=== PATIENT | female | born 1960 | race African-American/Black ===

== ENCOUNTER 2024-11-29 08:23 | Inpatient (IN) | payer OTHER, MEDICAID ==
[~2024-11-29] VITALS: Ht 167.6 cm; Wt 122.5 kg
--- NOTE | 2024-11-29 08:36 | ED.PDOC ---
History of Present Illness HPI Comments 64 year old female presents to the ED via EMS with a chief complaint of dizziness onset today (11/29/24) around 06:00. Patient woke up around 06:00 experiencing dizziness, worse when she sits up or walks. Patient was concerned for possible CVA, called 911. PMHx HTN, HLD, arthritis, DM. Denies any head injury, headache, blurry vision, chest pain, shortness of breath, fall, injury, trauma, cough, congestion, fever, chills. No other symptoms or modifying factors present at this time. Time Seen by MD: 08:28 Reviewed Notes: Nurses Notes, Medications, Allergies Allergies: Coded Allergies: NO KNOWN ALLERGIES (Unverified , 11/29/24) Information Source: Patient, Emergency Med Personnel Mode of Arrival: EMS Severity: Moderate Timing: Hours Duration: Since onset Prehospital treatment: None Past Medical History PAST MEDICAL HISTORY: Arthritis, DM, High Lipids, HTN Surgical History: Appendectomy, Tubal Ligation PHYSICIAN'S ASSISTANT History: No Pertinent PHYSICIAN'S ASSISTANT History Family History Family History: Family hx of heart justin Social History Smoker: Non-Smoker Alcohol: Denies ETOH Use Drugs: Denies Drug Use Lives In: Home Constitutional: denies: chills, diaphoresis, fatigue, fever, malaise, sweats, weakness, others EENTM: denies: blurred vision, double vision, ear bleeding, ear discharge, ear drainage, ear pain, ear ringing, eye pain, eye redness, hearing loss, mouth pain, mouth swelling, nasal discharge, nose bleeding, nose congestion, nose pain, photophobia, tearing, throat pain, throat swelling, voice changes, others Respiratory: denies: cough, hemoptysis, orthopnea, SOB at rest, shortness of breath, SOB with excertion, stridor, wheezing, others Cardiovascular: denies: chest pain, dizzy spells, diaphoresis, Dyspnea on exertion, edema, irregular heart beat, left arm pain, lightheadedness, palpitations, PND, syncope, others Gastrointestinal: denies: abdomen distended, abdominal pain, blood streaked bowels, constipated, diarrhea, dysphagia, difficulty swallowing, hematemesis, melena, nausea, poor appetite, poor fluid intake, rectal bleeding, rectal pain, vomiting, others Genitourinary: denies: abnormal vagina bleeding, burning, dyspareunia, dysuria, flank pain, frequency, hematuria, incontinence, pain, , vagina discharge, urgency, others Neurological: reports: dizziness; denies: fainting, headache, left sided numbness, left sided weakness, numbness, paresthesia, pre-existing deficit, right sided numbness, right sided weakness, seizure, speech problems, tingling, tremors, weakness, others Musculoskeletal: denies: back pain, gout, joint pain, joint swelling, muscle pain, muscle stiffness, neck pain, others Integumetry: denies: bruises, change in color, change in hair/nails, dryness, laceration, lesions, lumps, rash, wounds, others Allergic/Immunocompromised: denies: Difficulty Healing, Frequent Infections, Hives, Itching, others Hematologic/Lymphatic: denies: anemia, blood clots, easy bleeding, easy bruising, swollen glands, others Endocrine: denies: excessive hunger, excessive sweating, excessive thirst, excessive urination, flushing, intolerance to cold, intolerance to heat, unexplained weight gain, unexplained weight loss, others Psychiatric: denies: anxiety, bipolar disorder, depression, hopeless, panic disorder, schizophrenia, sleepless, suicidal, others All Other Systems: Reviewed and Negative Physical Exam General Appearance: Moderate Distress, Obese HEENT: Normal ENT Inspection, Pharynx Normal, TMs Normal Neck: Full Range of Motion, Non-Tender, Normal, Normal Inspection Respiratory: Chest Non-Tender, Lungs Clear, No Accessory Muscle Use, No Respiratory Distress, Normal Breath Sounds Cardiovascular: No Edema, No JVD, No Murmur, No Gallop, Normal Peripheral Pulses, Regular Rate/Rhythm Breast Exam: Deferred Gastrointestinal: No Organomegaly, Non Tender, No Pulsatile Mass, Normal Bowel Sounds, Soft Genitalia: Deferred Pelvic: Deferred Rectal: Deferred Extremities: No calf tenderness, Normal capillary refill, Normal inspection, Normal range of motion, Non-tender, No pedal edema Musculoskeletal : Apperance: Normal Neurologic: Alert, cert pharmacy tech II-XII nml as Tested, Motor Weakness, Normal Affect, Normal Mood, No Sensory Deficits Cerebellar Function: Unable to Test Reflexes: Normal Skin: Dry, Normal Color, Warm Lymphatic: No Adenopathy Was a procedure done? Was a procedure done?: No EKG EKG : Pulse Rate (adult): 69 Cardiac Rhythm: NSR Differential Dx Considerations may include: Autonomic dysfunction, near-syncope, dizziness X-Ray, Labs, Meds, VS Vital Signs Date Time Temp Pulse Resp B/P (MAP) Pulse Ox O2 Delivery O2 Flow Rate FiO2 11/29/24 10:22 76 18 100 Room Air 11/29/24 10:22 98.8 74 18 120/58 (78) 100 98.8 11/29/24 08:36 69 11/29/24 08:35 98.0 92 18 160/78 (105) 99 98.0 11/29/24 08:25 69 Lab Test 11/29/24 08:45 Range/Units White Blood Count 3.7 L 4.4-10.8 10^3/uL Red Blood Count 4.51 4.0-5.20 10^6/uL Hemoglobin 14.0 12.2-16.2 g/dL Hematocrit 40.1 36.0-46.0 % Mean Corpuscular Volume 88.8 80.0-100.0 fL Mean Corpuscular Hemoglobin 31.0 28.0-32.0 pg Mean Corpuscular Hemoglobin Concent 34.9 32.0-36.0 g/dL Red Cell Distribution Width 14.1 11.8-14.3 % Platelet Count 246 140-450 10^3/uL Mean Platelet Volume 8.7 6.9-10.8 fL Neutrophils (%) (Auto) 45.4 37.0-80.0 % Lymphocytes (%) (Auto) 45.1 10.0-50.0 % Monocytes (%) (Auto) 7.6 0.0-12.0 % Eosinophils (%) (Auto) 1.3 0.0-7.0 % Basophils (%) (Auto) 0.6 0.0-2.0 % Neutrophils # (Auto) 1.7 1.6-8.6 10 ^3/uL Lymphocytes # (Auto) 1.7 0.4-5.4 10 ^3/uL Monocytes # (Auto) 0.3 0-1.3 10 ^3/uL Eosinophils # (Auto) 0 0-0.8 10 ^3/uL Basophils # (Auto) 0 0-0.2 10 ^3/uL Nucleated Red Blood Cells 0.1 % Sodium Level 140 136-145 mmol/L Potassium Level 4.0 3.5-5.1 mmol/L Chloride Level 105 98-107 mmol/L Carbon Dioxide Level 23 20-31 mmol/L Anion Gap 12 5-15 Blood Urea Nitrogen 16 9-23 mg/dL Creatinine 1.08 H 0.550-1.02 mg/dL Glomerular Filtration Rate Calc 58 >90 mL/min BUN/Creatinine Ratio 14.8 10.0-20.0 Serum Glucose 148 H 74-106 mg/dL Calcium Level 10.1 8.7-10.4 mg/dL Troponin I High Sensitivity 3 L </=34 ng/L Current Medications Medications (Trade) Dose Ordered Sig/Kyra Route Start Time Stop Time Status Last Admin Sodium Chloride 500 ml @ 500 mls/hr Q1H ONCE IV 11/29/24 08:45 11/29/24 09:44 DC 11/29/24 08:45 PROCEDURE(s): HWOCT - HEAD WITHOUT CONTRAST REASON: dizziness ORDER NUMBER(s): [id number], ACCESSION NUMBER(s): [id number] IMPRESSION: 1. No acute intracranial process. HS:Y Hep-Lock was established. The patient was given a normal saline bolus at 500 cc The patient's CBC is within normal limits The chemistry panel shows a creatinine of 1.08 At this time, the patient was being admitted with a diagnosis of autonomic dysfunction The patient understands and agrees with the management. Images Reviewed?: Images reviewed and evaluated by me Time of 1ST Reevaluation: 08:58 Reevaluation 1ST: Unchanged Patient Education/Counseling: Diagnosis, Treatment, Prognosis Family Education/Counseling: No Family Present Additional Information The following tests were ordered, and results were reviewed by me: EKG, TROP, CBC, UA, BMP, CT HEAD WO CON Additional Information was gathered from interviewing the following independent historians: EMS I reviewed and agreed with the following test results read by other providers: CT HEAD WO CON I discussed treatment and results with medical personnel and: patient Comprehensive systems review obtained and negative except for what is stated in the HPI. Departure 1 Departure Time of Disposition: 10:51 Impression: Primary Impression: Autonomic dysfunction Disposition: 09 ADMITTED INPATIENT Admit to: Tele Condition: Fair Critical Care Note Critical Care Time?: Yes (45 min-critical care time only) Stability Stability form required: Yes Unstable for transfer: Telemetry monitoring (Telemetry monitoring required), ED Physician Assesment (Clinical assesment) Heart Score Heart Score: Heart Score Response (Comments) Value History N/A 0 EKG N/A 0 Age N/A 0 Risk Factors N/A 0 Troponin N/A 0 Total 0 I personally scribed for ABELARDO MATHIS MD ([email or web address]) on 11/29/24 at 08:36. Electronically submitted by Elizabeth Griggs ([email or web address]). I personally scribed for ABELARDO MATHIS MD ([email or web address]) on 11/29/24 at 08:36. Electronically submitted by Elizabeth Griggs ([email or web address]). I personally scribed for ABELARDO MATHIS MD ([email or web address]) on 11/29/24 at 09:00. Electronically submitted by Elizabeth Griggs ([email or web address]). I personally scribed for ABELARDO MATHIS MD ([email or web address]) on 11/29/24 at 10:11. Electronically submitted by Elizabeth Griggs ([email or web address]). ABELARDO MATHIS MD Nov 29, 2024 08:36
[2024-11-29] MEDS: SODIUM CHLORIDE 0.9% 500 ML IV ONE (08:45)
[2024-11-29 09:08] LABS: Basophils # (auto) 0 10 ^3/uL (0-0.2); Basophils % (auto) 0.6 % (0.0-2.0); Eosinophils # (auto) 0 10 ^3/uL (0-0.8); Eosinophils % (auto) 1.3 % (0.0-7.0); Hematocrit 40.1 % (36.0-46.0); Lymphocytes # (auto) 1.7 10 ^3/uL (0.4-5.4); Lymphocytes % (auto) 45.1 % (10.0-50.0); Mean Corpuscular Hgb Conc. 34.9 g/dL (32.0-36.0); Mean Corpuscular Volume 88.8 fL (80.0-100.0); Monocytes # (auto) 0.3 10 ^3/uL (0-1.3); Monocytes % (auto) 7.6 % (0.0-12.0); Neutrophils # (auto) 1.7 10 ^3/uL (1.6-8.6); Neutrophils % (auto) 45.4 % (37.0-80.0); Nucleated Red Blood Cells % 0.1 %; Platelet Count (auto) 246 10^3/uL (140-450); Red Blood Cells 4.51 10^6/uL (4.0-5.20); Red Cell Distribution Width 14.1 % (11.8-14.3); White Blood Cell 3.7 10^3/uL (4.4-10.8)
[2024-11-29 09:16] LABS: Chloride 105 mmol/L (98-107); Sodium 140 mmol/L (136-145)
[2024-11-29 09:17] LABS: Anion Gap 12 (5-15); Calcium 10.1 mg/dL (8.7-10.4); Carbon Dioxide 23 mmol/L (20-31)
[2024-11-29 09:22] LABS: BUN/Creatinine Ratio 14.8 (10.0-20.0); Blood Urea Nitrogen 16 mg/dL (9-23)
[2024-11-29 09:23] LABS: Glucose 148 mg/dL (74-106)
--- NOTE | 2024-11-29 10:01 | DVH ---
EXAM: CT HEAD WITHOUT CONTRAST HISTORY: dizziness COMPARISON: None TECHNIQUE: Axial images of the head were obtained and reformatted in coronal and sagittal planes. All CT scans at this medical facility are performed using dose modulation techniques as appropriate t o a performed exam including the following: Automated exposure control was utilized; adjustment of th e MA and/or KV according to patient size; and use of iterative reconstruction technique. CT Dose: CTDI volume is 52 mGy. Dose-length product is 833 mGy*cm FINDINGS: There is no evidence of acute intracranial hemorrhage, mass, mass effect midline shift. There is no h ydrocephalus or extra-axial fluid collection. Watson-white matter differentiation is maintained. The visualized paranasal sinuses and mastoid air cells are clear. The calvarium is intact. IMPRESSION: 1. No acute intracranial process. HS:Y
[2024-11-29] MEDS ORDERED: LISI-287 PO (13:08)
[2024-11-29] MEDS ORDERED: AMLO1TAB23 PO (13:08)
--- NOTE | 2024-11-29 13:12 | DVHHP2 ---
Admitting Diagnosis: Dizziness History of Present Illness 64 y/o female patient with h/o HTN, HLD, DM presents with c/o dizziness since waking up this morning. She denies head injury, headache, vision changes. While in the emergency department the patient was evaluated by the provider, As per provider: Labs, vital signs, and imagining monitored. Patient will be admitted for further evaluation and treatment. I discussed admission with the patient/family and is in agreement to treatment plan. Allergies: Coded Allergies: NO KNOWN ALLERGIES (Unverified , 11/29/24) Home Meds Reported Medications Famotidine (PEPCID TABLET) 20 Mg Tb, 2 TAB PO BID, #60 TAB 5 Refills 11/29/24 Atorvastatin Calcium (ATORVASTATIN CALCIUM) 20 Mg Tab, 30 MG PO DAILY, TAB 11/29/24 Duloxetine Hcl (Cymbalta) 60 Mg Cap, 500 MG PO, CAP 11/29/24 Aspirin (Aspir-Low) 81 Mg Tab, 81 MG PO DAILY for 30 Days, MG 11/29/24 Insulin Lispro (Insulin Lispro Kwikpen) 100 Unit/Ml Inj, SC 11/29/24 Moxifloxacin Hydrochloride (Moxifloxacin HCl) 0.5 % Anette, EACHEYE 11/29/24 Cyclobenzaprine HCl (Cyclobenzaprine Hydrochlo) 5 Mg Tab, 1 TAB PO BID 11/29/24 Lidocaine (Lidocaine) 5 % Pad, TOP 11/29/24 Pioglitazone Hydrochloride (PIOGLITAZONE HCL) 15 Mg Tab, 1 TAB PO DAILY 11/29/24 Metformin Hydrochloride (Metformin Hcl) 1,000 Mg Tab, 1 TAB PO BID 11/29/24 Amlodipine Besylate (Amlodipine Besylate) 10 Mg Tab, 1 TAB PO DAILY 11/29/24 Lisinopril & Hydrochlorothiazi (Lisinopril/Hydrochlorothi) 1 Tab Tab, 1 TAB PO DAILY 11/29/24 Current Medications Current Medications Medications (Trade) Dose Ordered Sig/Kyra Route PRN Reason Start Time Stop Time Status Last Admin Sodium Chloride 1,000 ml @ 120 mls/hr Q8H20M IV 11/29/24 13:15 11/29/24 13:15 Acetaminophen/ Hydrocodone Bitart ([place] 5/325MG Tab) 1 tab Q4HP PRN PO MODERATE PAIN (4-6 PAIN SCALE) 11/29/24 13:15 Ondansetron HCl (Zofran) 4 mg Q4HP PRN IV NAUSEA / VOMITING 11/29/24 13:15 Docusate Sodium (Colace Capsule) 100 mg BIDPRN PRN PO FOR CONSTIPATION 11/29/24 13:15 Acetaminophen (Tylenol Tablet) 650 mg Q6HP PRN PO PAIN SCALE 1-3 OR TEMP>100.4 11/29/24 13:15 Morphine Sulfate 2 mg Q4HPRN PRN IV SEVERE PAIN (7-10 PAIN SCALE) 11/29/24 13:15 Enoxaparin Sodium (Lovenox) 40 mg DAILY SC 11/30/24 10:00 Pantoprazole Sodium (Protonix) 40 mg DAILY IV 11/30/24 10:00 Nitroglycerin (Ntrostat Sublingual) 0.4 mg Q5MINP PRN SL FOR CHEST PAIN 11/29/24 13:15 Morphine Sulfate 2 mg Q30M PRN IV FOR CHEST PAIN 11/29/24 13:15 Diagnostic Test (Pha) (Accu-Chek Comfort Curve T) 1 strip ACHS 11/29/24 17:00 11/29/24 17:29 Insulin Human Regular (InsuLIN R) HS SC 11/29/24 22:00 Insulin Human Regular (InsuLIN R) AC SC 11/29/24 17:00 11/29/24 17:29 Dextrose 50 ml UD PRN IV Blood Sugar LESS THAN 60 11/29/24 13:15 Review of Systems Constitutional: denies chills, denies fever, denies malaise Eyes: denies eye pain, denies vision change ENT: denies ear pain, denies headache, denies nasal congestion, denies painful swallowing, denies voice change Cardiovascular: denies chest pain, denies edema, denies orthopnea, denies palpitations, denies paroxysmal nocturnal dyspnea Respiratory: denies cough, denies shortness of breath Gastrointestinal: denies constipation, denies diarrhea, denies nausea, denies vomiting Genitourinary: denies dysuria, denies frequent urination, denies urethral discharge Musculoskeletal: denies back pain, denies joint pain, denies muscle pain Skin: denies bruising, denies itching, denies rash Neurological: denies focal weakness, denies headache, denies sensory changes Psychiatric: denies anxiety, denies depression Endocrine: denies polydipsia, denies polyuria Hematologic/Lymphatic: denies easy bleeding, denies easy bruising, denies enlarged lymph nodes Allergic/Immunologic: denies allergy, denies hives Vital Signs Vital Signs Date Time Temp Pulse Resp B/P (MAP) Pulse Ox O2 Delivery O2 Flow Rate FiO2 11/29/24 18:07 97.2 67 20 132/82 (99) 100 97.2 11/29/24 18:07 Room Air* 0 21 Physical Exam General Appearance: alert, no distress HEENT: EOMI, PERRLA, normal external inspect of ears, no icterus, no nasal drainage Neck: no carotid bruit, no jugular venous distention (JVD), no lymphadenopathy Chest: normal thorax Respiratory: clear to auscultation, normal air movement Cardiovascular: regular rate and rhythm, no diastolic murmur, no jugular venous distention (JVD), no rub, no systolic murmur Abdominal: soft, no hepatomegaly, no mass, no splenomegaly, no tenderness Genitourinary: grossly normal external Musculoskeletal: no joint tenderness, no swelling Extremities: normal pulses, no calf tenderness, no clubbing, no cyanosis, no edema Skin: no bruising, no jaundice, no rash Neurological: alert, No focal deficit Results Labs Test 11/29/24 17:28 11/29/24 08:45 Range/Units POC Glucose 154 H 70-106 mg/dl White Blood Count 3.7 L 4.4-10.8 10^3/uL Red Blood Count 4.51 4.0-5.20 10^6/uL Hemoglobin 14.0 12.2-16.2 g/dL Hematocrit 40.1 36.0-46.0 % Mean Corpuscular Volume 88.8 80.0-100.0 fL Mean Corpuscular Hemoglobin 31.0 28.0-32.0 pg Mean Corpuscular Hemoglobin Concent 34.9 32.0-36.0 g/dL Red Cell Distribution Width 14.1 11.8-14.3 % Platelet Count 246 140-450 10^3/uL Mean Platelet Volume 8.7 6.9-10.8 fL Neutrophils (%) (Auto) 45.4 37.0-80.0 % Lymphocytes (%) (Auto) 45.1 10.0-50.0 % Monocytes (%) (Auto) 7.6 0.0-12.0 % Eosinophils (%) (Auto) 1.3 0.0-7.0 % Basophils (%) (Auto) 0.6 0.0-2.0 % Neutrophils # (Auto) 1.7 1.6-8.6 10 ^3/uL Lymphocytes # (Auto) 1.7 0.4-5.4 10 ^3/uL Monocytes # (Auto) 0.3 0-1.3 10 ^3/uL Eosinophils # (Auto) 0 0-0.8 10 ^3/uL Basophils # (Auto) 0 0-0.2 10 ^3/uL Nucleated Red Blood Cells 0.1 % Sodium Level 140 136-145 mmol/L Potassium Level 4.0 3.5-5.1 mmol/L Chloride Level 105 98-107 mmol/L Carbon Dioxide Level 23 20-31 mmol/L Anion Gap 12 5-15 Blood Urea Nitrogen 16 9-23 mg/dL Creatinine 1.08 H 0.550-1.02 mg/dL Glomerular Filtration Rate Calc 58 >90 mL/min BUN/Creatinine Ratio 14.8 10.0-20.0 Serum Glucose 148 H 74-106 mg/dL Calcium Level 10.1 8.7-10.4 mg/dL Troponin I High Sensitivity 3 L </=34 ng/L Plan 1. Autonomic dysfunction Monitorm neurology consult, MRI brain, IV fluids 2. HLD Monitor, medications, lipid panel 3. Benign essential HTN Monitor, cardiology consult, antihypertensives 4. Morbid obesity Monitor, cardiac diet 5. DM II with hyperglycemia Monitor, insulin SS, obtain Hgb A1c Plan discussed with: Patient, Other JOHN SHINE NP Nov 29, 2024 13:12
[2024-11-29] MEDS ORDERED: NITROGLYCERIN 0.4 MG SL TAB SL PRN (13:15)
[2024-11-29] MEDS ORDERED: MORPHINE SULFATE INJ 2 MG/ml SYRG IV PRN ×2 (13:15)
[2024-11-29] MEDS ORDERED: ACETAMINOPHEN 325 MG TAB PO PRN (13:15)
[2024-11-29] MEDS: SODIUM CHLORIDE 0.9% 1,000 ML IV SCH (13:15)
[2024-11-29] MEDS ORDERED: ONDANSETRON HCL 4 MG/2 ML VIAL IV PRN (13:15)
[2024-11-29] MEDS ORDERED: DEXTROSE (50%) 50ML SYRG IV PRN (13:15)
[2024-11-29 13:37] VITALS: PULSE 76; RESP 16; O2SAT 97
[2024-11-29] MEDS: ACCU-CHEK COMFORT CURVE STRIP VI SCH (17:29)
[2024-11-29] MEDS: InsuLIN REG 1unit/0.01ml Soln (100units/ml) SC SCH ×2 (17:29→22:10)
[2024-11-29 18:07] VITALS: BP 132/82; PULSE 67; RESP 20; TEMP 97.2; O2SAT 100
[2024-11-29] MEDS ORDERED: LIDO1PAD55 TOP (18:29)
[2024-11-29] MEDS ORDERED: CYCL-614 PO (18:29)
[2024-11-29] MEDS ORDERED: MOXI0.5S3 EACHEYE (18:29)
[2024-11-29] MEDS ORDERED: METF-372 PO (18:29)
[2024-11-29] MEDS ORDERED: INSU100I54 SC (18:29)
[2024-11-29] MEDS ORDERED: ASPI-543 PO (18:29)
[2024-11-29] MEDS ORDERED: PIOG1TAB36 PO (18:29)
[2024-11-29] MEDS ORDERED: DULO60CA41 PO (18:30)
[2024-11-29] MEDS ORDERED: ATOR20TA50 PO (18:30)
[2024-11-29] MEDS ORDERED: FAMO20TA10 PO (18:31)
[2024-11-29 20:00] VITALS: PULSE 68; PULSE 83; RESP 16
[2024-11-29 20:58] VITALS: BP 149/72; PULSE 83; RESP 16; TEMP 97.7; O2SAT 99
--- NOTE | 2024-11-29 23:35 | DVHINCON2 ---
Date of service: Nov 29, 2024 Referring Physician Fanta Reason for Consultation Stroke workup History of Present Illness Ms. Lynch is a 64 years old right-handed female with a history of hypertension, diabetes, dyslipidemia, arthritis, obesity, she came to the hospital on 11/29/2024 with a chief complaint of dizziness. At this time, she was alert and fully oriented, she provided the following history In the morning on 11/29/2024, she woke with intense dizziness in that everything was moving around her, as a result, she was not able to walk, the dizziness personally for 3-4 hours, she felt better when she closed her eyes and kept her body still. Her problem resolved after he came to the hospital. There was no associated nausea, vomiting, vision changes, hearing change, ringing in the years, increased sweating, focal weakness numbness About two years ago, she had a similar dizziness/spinning sensation spells lasted for about 3-4 hours, the patient was seen in the local hospital but she does not remember the diagnosis and the treatment For about 10 years of time, she has tingling, numbness in bilateral feet, legs, hands and all the bilateral fingers, the problem is worse when she was physically in the active, especially resting in the bed in the evening, with the urge to move however movement does not help the symptoms, the symptoms cause insomnia. Cymbalta use the help however not anymore after her new doctor cut do wn the dosage. She was reports gabapentin one capsule 3 times a day helped the symptoms. She does not remember using Lyrica CBC, 11/29/2024: WBC: 3.7 BUN/CR, 11/29/2024: 16/1.08 CT head, 11/29/2024: No acute intracranial process Past Medical History Hypertension, diabetes, dyslipidemia, arthritis Past Surgical History Appendectomy, tubal ligation Family History: Cardiovascular disease G8 MOTHER G8 BROTHER Family History Heart disease Social History She was a tobacco smoker, no history of drug or alcohol abuse Allergies: Coded Allergies: NO KNOWN ALLERGIES (Unverified , 11/29/24) Home Meds Reported Medications Famotidine (PEPCID TABLET) 20 Mg Tb, 2 TAB PO BID, #60 TAB 5 Refills 11/29/24 Atorvastatin Calcium (ATORVASTATIN CALCIUM) 20 Mg Tab, 30 MG PO DAILY, TAB 11/29/24 Duloxetine Hcl (Cymbalta) 60 Mg Cap, 500 MG PO, CAP 11/29/24 Aspirin (Aspir-Low) 81 Mg Tab, 81 MG PO DAILY for 30 Days, MG 11/29/24 Insulin Lispro (Insulin Lispro Kwikpen) 100 Unit/Ml Inj, SC 11/29/24 Moxifloxacin Hydrochloride (Moxifloxacin HCl) 0.5 % Anette, EACHEYE 11/29/24 Cyclobenzaprine HCl (Cyclobenzaprine Hydrochlo) 5 Mg Tab, 1 TAB PO BID 11/29/24 Lidocaine (Lidocaine) 5 % Pad, TOP 11/29/24 Pioglitazone Hydrochloride (PIOGLITAZONE HCL) 15 Mg Tab, 1 TAB PO DAILY 11/29/24 Metformin Hydrochloride (Metformin Hcl) 1,000 Mg Tab, 1 TAB PO BID 11/29/24 Amlodipine Besylate (Amlodipine Besylate) 10 Mg Tab, 1 TAB PO DAILY 11/29/24 Lisinopril & Hydrochlorothiazi (Lisinopril/Hydrochlorothi) 1 Tab Tab, 1 TAB PO DAILY 11/29/24 Current Medications Current Medications Medications (Trade) Dose Ordered Sig/Kyra Route PRN Reason Start Time Stop Time Status Last Admin Sodium Chloride 1,000 ml @ 120 mls/hr Q8H20M IV 11/29/24 13:15 11/29/24 13:15 Acetaminophen/ Hydrocodone Bitart ([place] 5/325MG Tab) 1 tab Q4HP PRN PO MODERATE PAIN (4-6 PAIN SCALE) 11/29/24 13:15 Ondansetron HCl (Zofran) 4 mg Q4HP PRN IV NAUSEA / VOMITING 11/29/24 13:15 Docusate Sodium (Colace Capsule) 100 mg BIDPRN PRN PO FOR CONSTIPATION 11/29/24 13:15 Acetaminophen (Tylenol Tablet) 650 mg Q6HP PRN PO PAIN SCALE 1-3 OR TEMP>100.4 11/29/24 13:15 Morphine Sulfate 2 mg Q4HPRN PRN IV SEVERE PAIN (7-10 PAIN SCALE) 11/29/24 13:15 Enoxaparin Sodium (Lovenox) 40 mg DAILY SC 11/30/24 10:00 Pantoprazole Sodium (Protonix) 40 mg DAILY IV 11/30/24 10:00 Nitroglycerin (Ntrostat Sublingual) 0.4 mg Q5MINP PRN SL FOR CHEST PAIN 11/29/24 13:15 Morphine Sulfate 2 mg Q30M PRN IV FOR CHEST PAIN 11/29/24 13:15 Diagnostic Test (Pha) (Accu-Chek Comfort Curve T) 1 strip ACHS 11/29/24 17:00 11/29/24 21:55 Insulin Human Regular (InsuLIN R) HS SC 11/29/24 22:00 11/29/24 22:10 Insulin Human Regular (InsuLIN R) AC SC 11/29/24 17:00 11/29/24 17:29 Dextrose 50 ml UD PRN IV Blood Sugar LESS THAN 60 11/29/24 13:15 Review of Systems As above, the other systems are negative Vital Signs Vital Signs Date Time Temp Pulse Resp B/P (MAP) Pulse Ox O2 Delivery O2 Flow Rate FiO2 11/29/24 20:58 97.7 83 16 149/72 (97) 99 97.7 11/29/24 18:07 Room Air* 0 21 Physical Exam GENERAL EXAM: General: the patient is well developed and nourished. No acute distress. HEENT: Normocephalic, neck is supple, no carotid bruits. No mass. RESPIRATORY: Normal respiratory effort with symmetrical lung expansion. Lungs clear to auscultation. CARDIOVASCULAR: Regular rate and rhythm with no murmurs. S1, S2. ABDOMEN: Soft, nontender, normal bowel sound NEUROLOGICAL: MENTAL STATUS: Awake and alert. Oriented to person, place, time and general circumstances. Able to give personal historys SPEECH, LANGUAGE, HIGHER CORTICAL FUNCTION: no aphasia or dysathria. CRANIAL NERVES: #2: Intact visual desai to confrontation. The optic discs were sharp. #3,4,6: Pupils are equal, round and reactive. EOMs full and conjugate. No nystagmus. #5: Facial sensation intact in all three divisions bilaterally. Mandibular strength intact. #7: Facial muscles symmetrical and strength intact. #8: Hearing grossly normal to voice. #9,10: Uvula and soft palate rise in the midline. Swallow and voice are normal. #11: Trapezius and sternomastoid strength intact bilaterally. #12: Tongue midline. No fasciculations or atrophy. SENSATION: Sensation examined results are not consistent MOTOR: Normal tone in the upper and lower extremity. Normal muscle bulk. No fasciculations. No abnormal movements or posturing. Muscle strength of the major groups in the upper extremities is 5/5. Muscle strength of the major groups in the lower extremities is 5/5. REFLEXES: Deep tendon reflexes are symmetrical. No pathological reflexes. CEREBELLAR/COORDINATION: Finger to nose is normal bilaterally. GAIT/STATION: deferred. Labs/Diagnostic Data Labs Test 11/29/24 21:33 11/29/24 08:45 Range/Units POC Glucose 231 H 70-106 mg/dl White Blood Count 3.7 L 4.4-10.8 10^3/uL Red Blood Count 4.51 4.0-5.20 10^6/uL Hemoglobin 14.0 12.2-16.2 g/dL Hematocrit 40.1 36.0-46.0 % Mean Corpuscular Volume 88.8 80.0-100.0 fL Mean Corpuscular Hemoglobin 31.0 28.0-32.0 pg Mean Corpuscular Hemoglobin Concent 34.9 32.0-36.0 g/dL Red Cell Distribution Width 14.1 11.8-14.3 % Platelet Count 246 140-450 10^3/uL Mean Platelet Volume 8.7 6.9-10.8 fL Neutrophils (%) (Auto) 45.4 37.0-80.0 % Lymphocytes (%) (Auto) 45.1 10.0-50.0 % Monocytes (%) (Auto) 7.6 0.0-12.0 % Eosinophils (%) (Auto) 1.3 0.0-7.0 % Basophils (%) (Auto) 0.6 0.0-2.0 % Neutrophils # (Auto) 1.7 1.6-8.6 10 ^3/uL Lymphocytes # (Auto) 1.7 0.4-5.4 10 ^3/uL Monocytes # (Auto) 0.3 0-1.3 10 ^3/uL Eosinophils # (Auto) 0 0-0.8 10 ^3/uL Basophils # (Auto) 0 0-0.2 10 ^3/uL Nucleated Red Blood Cells 0.1 % Sodium Level 140 136-145 mmol/L Potassium Level 4.0 3.5-5.1 mmol/L Chloride Level 105 98-107 mmol/L Carbon Dioxide Level 23 20-31 mmol/L Anion Gap 12 5-15 Blood Urea Nitrogen 16 9-23 mg/dL Creatinine 1.08 H 0.550-1.02 mg/dL Glomerular Filtration Rate Calc 58 >90 mL/min BUN/Creatinine Ratio 14.8 10.0-20.0 Serum Glucose 148 H 74-106 mg/dL Calcium Level 10.1 8.7-10.4 mg/dL Troponin I High Sensitivity 3 L </=34 ng/L Assessment Recurrent vertigo, etiology unclear Meniere's disease Stroke Paresthesias in the upper and lower extremities Diabetic polyneuropathy Restless leg syndrome Iron deficiency Insomnia This is a long and complicated consultation Plan/Recommendation Monitoring Supportive treatment Telemetry MR head Vitamin B12, folic acid, TSH, HbA1c, lipid profile Iron profile Ferritin A trial of Lyrica 50 mg daily in the evening Weight control Foot care Daily foot inspection Soft, wide protect she was only More recommendation per clinical course Prognosis: Poor This medical document was created using an electronic medical record system with [employer] computerized dictation system. Although this document has been carefully reviewed, there may still be some phonetic and typographical errors. These areas are purely typographical due to imperfections of the software programs, and do not reflect any compromise in the patient's medical care. Plan discussed with: Patient, Other HAYLEY PAGE MD Nov 29, 2024 23:35
[2024-11-30] VITALS (8 sets, daily range): BP systolic 117–130; BP diastolic 54–70; PULSE 65–83; RESP 15–18; TEMP 97.8–99.1; O2SAT 96–100
[2024-11-30] MEDS: DOCUSATE SOD 100 MG CAP PO PRN (00:35)
[2024-11-30] MEDS: HYDROcodone-ACET 5/325MG TAB PO PRN (00:36)
[2024-11-30] MEDS ORDERED: LORazepam 2MG/ML-1ML VIAL IV PRN (00:45)
[2024-11-30] MEDS: PREGABALIN 25 MG CAP PO ONE (01:40)
[2024-11-30 06:47] LABS: Basophils # (auto) 0 10 ^3/uL (0-0.2); Basophils % (auto) 0.3 % (0.0-2.0); Eosinophils # (auto) 0.1 10 ^3/uL (0-0.8); Eosinophils % (auto) 1.9 % (0.0-7.0); Hematocrit 36.9 % (36.0-46.0); Hemoglobin 12.7 g/dL (12.2-16.2); Lymphocytes % (auto) 47.8 % (10.0-50.0); Mean Corpuscular Hemoglobin 30.7 pg (28.0-32.0); Mean Corpuscular Hgb Conc. 34.5 g/dL (32.0-36.0); Mean Corpuscular Volume 88.9 fL (80.0-100.0); Monocytes # (auto) 0.4 10 ^3/uL (0-1.3); Monocytes % (auto) 9.7 % (0.0-12.0); Neutrophils # (auto) 1.7 10 ^3/uL (1.6-8.6); Neutrophils % (auto) 40.3 % (37.0-80.0); Nucleated Red Blood Cells % 0.1 %; Platelet Count (auto) 204 10^3/uL (140-450); Red Blood Cells 4.15 10^6/uL (4.0-5.20); White Blood Cell 4.2 10^3/uL (4.4-10.8)
--- NOTE | 2024-11-30 07:26 | ECG ---
[facility] Test Date: 2024-11-29 Test Time: 08:25:26 Pat Name: RIDDHI ESTRADA Department: ED Room: [facility]T A Gender: F [employer] Designer: MAYE : 1960 Requested By: ABELARDO MATHIS Order Number: [id number] Reading MD: Hayden Noel Measurements Intervals [place] Rate: 69 P: 40 AR: 154 QRS: 64 QRSD: 89 T: 85 QT: 440 QTc: 472 Interpretive Statements Sinus rhythm Electronically Signed On 11-30-2024 17:09:36 PDT by Hayden Noel Please click the below link to view image of tracing.
[2024-11-30 07:42] LABS: Alanine Aminotransferase 12 U/L (7-40); Alkaline Phosphatase 88 U/L (46-116); Anion Gap 9 (5-15); Aspartate Aminotransferase 13 U/L (13-40); BUN/Creatinine Ratio 15.2 (10.0-20.0); Blood Urea Nitrogen 15 mg/dL (9-23); Calcium 9.5 mg/dL (8.7-10.4); Carbon Dioxide 23 mmol/L (20-31); Potassium 3.8 mmol/L (3.5-5.1); Sodium 141 mmol/L (136-145); Total Protein 6.6 g/dL (5.7-8.2)
[2024-11-30 07:43] LABS: Bilirubin, Total 0.6 mg/dL (0.2-1.0); Ferritin 64.9 ng/mL (10-291); Folate (Folic Acid) 9.32 ng/mL (>5.38); Free T4 (Free Thyroxine) 0.91 ng/dL (0.89-1.76)
[2024-11-30 07:46] LABS: % Iron Saturation 19.4 % (15-50)
[2024-11-30 07:48] LABS: Chloride 109 mmol/L (98-107); Glucose 153 mg/dL (74-106)
[2024-11-30 07:57] LABS: Cholesterol 144 mg/dL (< 200); HDL Cholesterol 37 mg/dL (40-59); LDL Cholesterol 91 mg/dL (< 100); Triglycerides 98 mg/dL (< 150)
--- NOTE | 2024-11-30 08:13 | DVHINCON2 ---
Date of service: Nov 30, 2024 History of Present Illness HPI 64-year-old female presented with dizziness. She woke up with vertigo and dizziness yesterday and decided to call 911. She was unable to stand up and walk at that point. Did feel significant room spinning. Dizziness/vertigo improved after coming to emergency room. She mentions that she has had similar episodes around a year prior. Did not lose consciousness. Denies chest pains. Denies shortness of breath. Denies palpitation. Cardiology was involved for cardiac aspects of care. Patient mentions occasional chest discomfort which the last episode was many weeks ago (happening at rest). Around a year ago she saw a pie chef (near [facility]) and was told the heart was good (unknown details available). Does have history of obesity, diabetes mellitus, hypertension and hyperlipidemia. Denies orthopnea/PND. Denies leg swellings. Feels limited in activity secondary to left hip arthritis/pain. Home Meds Reported Medications Famotidine (PEPCID TABLET) 20 Mg Tb, 2 TAB PO BID, #60 TAB 5 Refills 11/29/24 Atorvastatin Calcium (ATORVASTATIN CALCIUM) 20 Mg Tab, 30 MG PO DAILY, TAB 11/29/24 Duloxetine Hcl (Cymbalta) 60 Mg Cap, 500 MG PO, CAP 11/29/24 Aspirin (Aspir-Low) 81 Mg Tab, 81 MG PO DAILY for 30 Days, MG 11/29/24 Insulin Lispro (Insulin Lispro Kwikpen) 100 Unit/Ml Inj, SC 11/29/24 Moxifloxacin Hydrochloride (Moxifloxacin HCl) 0.5 % Anette, EACHEYE 11/29/24 Cyclobenzaprine HCl (Cyclobenzaprine Hydrochlo) 5 Mg Tab, 1 TAB PO BID 11/29/24 Lidocaine (Lidocaine) 5 % Pad, TOP 11/29/24 Pioglitazone Hydrochloride (PIOGLITAZONE HCL) 15 Mg Tab, 1 TAB PO DAILY 11/29/24 Metformin Hydrochloride (Metformin Hcl) 1,000 Mg Tab, 1 TAB PO BID 11/29/24 Amlodipine Besylate (Amlodipine Besylate) 10 Mg Tab, 1 TAB PO DAILY 11/29/24 Lisinopril & Hydrochlorothiazi (Lisinopril/Hydrochlorothi) 1 Tab Tab, 1 TAB PO DAILY 11/29/24 Past Medical History Others Past medical history includes diabetes mellitus, obesity, hypertension, hyperlipidemia, DJD, autonomic dysfunction, old history of appendectomy and tubal ligation. Family History: No pertinent Hx Patient Family History: Cardiovascular disease G8 MOTHER G8 BROTHER Smoker: Quit Alocohol: None Drugs: None Review of Systems Constitutional: No symptom reported Ears, Nose, & Throat: No symptom reported Cardiovascular: Lt Headedness All Other Systems Fourteen point review of system was performed. Relevant findings as per above and as per HPI. Otherwise negative. H&P Exam Vital Signs Vital Signs Date Time Temp Pulse Resp B/P (MAP) Pulse Ox O2 Delivery O2 Flow Rate FiO2 11/30/24 05:00 97.9 69 15 130/64 (86) 96 97.9 11/29/24 20:00 Room Air* 0 21 General Appeara: Well developed, Obese Head Exam: Normal inspection Neck Exam: Normal inspection Eye Exam: bilateral eye PERRL Nasal Exam: Normal inspection Mouth: Normal Inspection Pulmonary/Respiratory: Lungs clear Cardiovascular/Chest: Normal inspection, Regular rate Peripheral Pulses: 2+ carotid (R), 2+ carotid (L), 2+ femoral (R), 2+ femoral (L), 2+ dorsalis pedis (R), 2+ dorsalis pedis (L), 2+ Radial (R), 2+ Radial (L) Abdominal Exam: Normal bowel sounds, Soft Neuro/Mental St: Alert, Oriented Appearance: Appropriate appearance Eye contact/ Speech: Cooperative Labs/Xrays Labs Test 11/30/24 06:11 11/30/24 06:00 11/29/24 08:45 Range/Units White Blood Count 4.2 L 4.4-10.8 10^3/uL Red Blood Count 4.15 4.0-5.20 10^6/uL Hemoglobin 12.7 12.2-16.2 g/dL Hematocrit 36.9 36.0-46.0 % Mean Corpuscular Volume 88.9 80.0-100.0 fL Mean Corpuscular Hemoglobin 30.7 28.0-32.0 pg Mean Corpuscular Hemoglobin Concent 34.5 32.0-36.0 g/dL Red Cell Distribution Width 14.0 11.8-14.3 % Platelet Count 204 140-450 10^3/uL Mean Platelet Volume 8.6 6.9-10.8 fL Neutrophils (%) (Auto) 40.3 37.0-80.0 % Lymphocytes (%) (Auto) 47.8 10.0-50.0 % Monocytes (%) (Auto) 9.7 0.0-12.0 % Eosinophils (%) (Auto) 1.9 0.0-7.0 % Basophils (%) (Auto) 0.3 0.0-2.0 % Neutrophils # (Auto) 1.7 1.6-8.6 10 ^3/uL Lymphocytes # (Auto) 2.0 0.4-5.4 10 ^3/uL Monocytes # (Auto) 0.4 0-1.3 10 ^3/uL Eosinophils # (Auto) 0.1 0-0.8 10 ^3/uL Basophils # (Auto) 0 0-0.2 10 ^3/uL Nucleated Red Blood Cells 0.1 % Sodium Level 141 136-145 mmol/L Potassium Level 3.8 3.5-5.1 mmol/L Chloride Level 109 H 98-107 mmol/L Carbon Dioxide Level 23 20-31 mmol/L Anion Gap 9 5-15 Blood Urea Nitrogen 15 9-23 mg/dL Creatinine 0.99 0.550-1.02 mg/dL Glomerular Filtration Rate Calc 64 >90 mL/min BUN/Creatinine Ratio 15.2 10.0-20.0 Serum Glucose 153 H 74-106 mg/dL Hemoglobin A1c 8.1 H <5.7 % A1C Calcium Level 9.5 8.7-10.4 mg/dL Iron Level 57 50-170 ug/dL Total Iron Binding Capacity 294 250-425 ug/dL Percent Iron Saturation 19.4 15-50 % Ferritin 64.9 10-291 ng/mL Total Bilirubin 0.6 0.2-1.0 mg/dL Aspartate Amino Transferase (AST) 13 13-40 U/L Alanine Aminotransferase (ALT) 12 7-40 U/L Alkaline Phosphatase 88 46-116 U/L Total Protein 6.6 5.7-8.2 g/dL Albumin 4.0 3.2-4.8 g/dL Triglycerides Level 98 < 150 mg/dL Cholesterol Level 144 < 200 mg/dL LDL Cholesterol 91 < 100 mg/dL HDL Cholesterol 37 L 40-59 mg/dL Vitamin B12 Level 271 211-911 pg/mL Folic Acid 9.32 >5.38 ng/mL Free Thyroxine (T4) Calculated 0.91 0.89-1.76 ng/dL POC Glucose 162 H 70-106 mg/dl Troponin I High Sensitivity 3 L </=34 ng/L Assessment/Plan Plan 64-year-old female presented with dizziness. She woke up with vertigo and dizziness yesterday and decided to call 911. She was unable to stand up and walk at that point. Did feel significant room spinning. Dizziness/vertigo improved after coming to emergency room. She mentions that she has had similar episodes around a year prior. Did not lose consciousness. Denies chest pains. Denies shortness of breath. Denies palpitation. Cardiology was involved for cardiac aspects of care. Patient mentions occasional chest discomfort which the last episode was many weeks ago (happening at rest). Around a year ago she saw a pie chef (near [facility]) and was t old the heart was good (unknown details available). Does have history of obesity, diabetes mellitus, hypertension and hyperlipidemia. Denies orthopnea/PND. Denies leg swellings. Feels limited in activity secondary to left hip arthritis/pain. Not in acute distress. Lying flat in bed. No JVD. Not using accessory muscle of breathing. No goiter. Mucosa is pink and wet. Lungs are clear to auscultation. Cardiac: Regular, no thrill/gallop. Abdomen is soft and obese. There is no gross mass/hepatomegaly. There is no peripheral edema. Dorsalis pedis is 2+ bilateral Past medical history includes diabetes mellitus, obesity, hypertension, hyperlipidemia, DJD, autonomic dysfunction, old history of appendectomy and tubal ligation. Stopped smoking 19 years ago. Denies substance abuse. Denies alcohol abuse. Denies relevant family history. Creatinine: 1.08 - 0.99 Potassium: 4.0 - 3.8 Troponin (high sensitive): 3 CT of the head reported: IMPRESSION: 1. No acute intracranial process. EKG revealed sinus rhythm with no ST-T changes Tele reveals sinus rhythm Patient is a 64-year-old female who presented with vertigo which lasted few hours. Did not lose consciousness. Syncope is not considered. Does have history of obesity/diabetes/hypertension/hyperlipidemia for coronary artery disease. Presentation is not considered acute coronary syndrome. Does occasionally feel atypical chest discomfort. Mentions that she was checked with outside pie chef around a year ago. Cardiac etiology for presentation is less likely. Vertigo Dizziness Meniere's? CVA? Diabetes mellitus Hyperlipidemia Hypertension Cardiac suggestion for management: Manage on telemetry Follow-up electrolytes and kidney function tests and correct abnormalities. Keep potassium above 4 and magnesium above 2 Request for echocardiogram Request for chest x-ray Request for thyroid function test Request for carotid duplex Neurology follow-up Further evaluation and management depends on the above and clinical course Thank you for consultation A total of 75 minutes was spent reviewing the patient record, examining the patient, making a diagnostic and therapeutic plan, discussing this plan with medical personnel, following up on diagnostic studies and following the patient for clinical stability excluding any and all procedures. At least 50% of this time was spent in direct, [id number] contact. Thank you for allowing me to participate in this patient's care. Further recommendations will depend on patient's clinical course. Please do not hesitate to contact me if you have any questions or concerns. This medical document was created using electronic medical record system with [employer] computerized dictation system. Although this document has been carefully reviewed, there may still be some phonetic and typographical errors. These areas are purely typographical due to the imperfection of the software programs, and do not reflect any compromise in the patient's medical care Plan discussed with: Patient, Other (nurse) ANTHONY DURAN MD Nov 30, 2024 08:13
--- NOTE | 2024-11-30 09:33 | DVH ---
EXAMINATION: MRI BRAIN HEAD WO CONTRAST INDICATION: cva COMPARISON: CT head 11/29/2024 TECHNIQUE: Multiplanar, multisequence magnetic resonance imaging of the brain was performed without t he use of intravenous contrast. FINDINGS: There is no restricted diffusion. The monte and white matter signal is appropriate. There is no eviden ce of hemorrhage, mass, mass effect or midline shift. There is no hydrocephalus or extra-axial fluid collection. The visualized intracranial vasculature demonstrates appropriate flow-voids. The sagittal midline structures appear unremarkable. The craniocervical junction is within normal limits. The aniya varium demonstrates normal marrow signal. The paranasal sinuses and mastoid air cells are clear. IMPRESSION: 1. There is no acute intracranial process. HS:Y
[2024-11-30 10:07] LABS: Hepatitis B Surface Antigen Negative (Negative)
[2024-11-30 10:27] LABS: Hepatitis C Antibody Negative (Negative)
[2024-11-30] MEDS: ENOXAPARIN SOD 40 MG/0.4 ML SYRINGE SC SCH (10:51)
[2024-11-30] MEDS: PANTOPRAZOLE 40 MG/10 ML VIAL INJ IV SCH (10:51)
--- NOTE | 2024-11-30 13:36 | DVHPN2 ---
Progress Note - Dictate Date Seen: Nov 30, 2024 Medical Necessity Reason Pt with a Central, PICC or Fol: No vital signs Vital Sign Date Time Temp Pulse Resp B/P (MAP) Pulse Ox O2 Delivery O2 Flow Rate FiO2 11/30/24 08:00 70 18 Room Air* 0 21 11/30/24 05:00 97.9 130/64 (86) 96 97.9 Total Intake and Output 11/29/24 11/29/24 11/30/24 15:00 23:00 07:00 Intake Total 850 ml Balance 850 ml medications Current Medications Medications Dose Ordered Sig/Kyra Route Start Time Stop Time Status Last Admin Dose Admin Sodium Chloride 1,000 ml @ 120 mls/hr Q8H20M IV 11/29/24 13:15 11/29/24 13:15 120 MLS/HR Acetaminophen/ Hydrocodone Bitart 1 tab Q4HP PRN PO 11/29/24 13:15 11/30/24 00:36 1 TAB Ondansetron HCl 4 mg Q4HP PRN IV 11/29/24 13:15 Docusate Sodium 100 mg BIDPRN PRN PO 11/29/24 13:15 11/30/24 00:35 100 MG Acetaminophen 650 mg Q6HP PRN PO 11/29/24 13:15 Morphine Sulfate 2 mg Q4HPRN PRN IV 11/29/24 13:15 Enoxaparin Sodium 40 mg DAILY SC 11/30/24 10:00 11/30/24 10:51 40 MG Pantoprazole Sodium 40 mg DAILY IV 11/30/24 10:00 11/30/24 10:51 40 MG Nitroglycerin 0.4 mg Q5MINP PRN SL 11/29/24 13:15 Morphine Sulfate 2 mg Q30M PRN IV 11/29/24 13:15 Diagnostic Test (Pha) 1 strip ACHS 11/29/24 17:00 11/30/24 11:49 1 STRIP Insulin Human Regular HS SC 11/29/24 22:00 11/29/24 22:10 4 UNITS Insulin Human Regular AC SC 11/29/24 17:00 11/30/24 12:01 3 UNITS Dextrose 50 ml UD PRN IV 11/29/24 13:15 Pregabalin 50 mg HS PO 11/30/24 22:00 Lorazepam 1 mg ONCE PRN IV 11/30/24 00:45 objective General Appearance: alert, no distress HEENT: EOMI, PERRLA, normal external inspect of ears, no icterus, no nasal drainage Neck: no carotid bruit, no jugular venous distention (JVD), no lymphadenopathy Chest: normal thorax Respiratory: clear to auscultation, normal air movement Cardiovascular: regular rate and rhythm, no diastolic murmur, no jugular venous distention (JVD), no rub, no systolic murmur Abdominal: soft, no hepatomegaly, no mass, no splenomegaly, no tenderness Genitourinary: grossly normal external Musculoskeletal: no joint tenderness, no swelling Extremities: normal pulses, no calf tenderness, no clubbing, no cyanosis, no edema Skin: no bruising, no jaundice, no rash Neurological: alert, No focal deficit laboratory and microbiology Laboratory Tests 11/30/24 06:11 Test 11/30/24 06:11 Range/Units Serum Glucose 153 H 74-106 mg/dL Problem List 1. Autonomic dysfunction Monitorm neurology consult, MRI brain, IV fluids 2. HLD Monitor, medications, lipid panel 3. Benign essential HTN Monitor, cardiology consult, antihypertensives 4. Morbid obesity Monitor, cardiac diet 5. DM II with hyperglycemia Monitor, insulin SS, obtain Hgb A1c Assessment/Plan Subjective: Patient is awake and alert. Objective: Patient was admitted for dizziness. Patient was seen by cardiology as well as neurology. Patient was seen and evaluated by ER and diagnosed with possible autonomic dysfunction. Cannot rule out Menieres disease as well. Patient has underlying history of hypertension, hyperlipidemia, and diabetes. Plan: Continue current treatment. Start Meclizine as needed for dizziness. MRI of the brain to rule out CVA. Neurology recommendations appreciated. Plan discussed with: Patient, Other JOHN SHINE NP Nov 30, 2024 13:36
[2024-11-30] MEDS ORDERED: MECLIZINE HCL 25 MG TAB PO PRN (13:45)
[2024-11-30] MEDS: PREGABALIN 25 MG CAP PO SCH (22:12)
[2024-12-01 00:51] VITALS: BP 141/60; PULSE 70; RESP 16; TEMP 97.8; O2SAT 98
[2024-12-01 04:45] VITALS: BP 126/67; PULSE 69; RESP 17; TEMP 97.7; O2SAT 98
--- NOTE | 2024-12-01 07:17 | DVHSR ---
APPROVED REPORT EXAM: Two-dimensional and M-mode echocardiogram with Doppler and color Doppler. Blood Pressure: 130/64 mmHg INDICATION Work up RISK FACTORS Height: 66, Weight: 215 DIMENSIONS LVDd3.9 (3.8-5.7cm)LA (2D)3.9 (1.9-4.0cm)Aortic Root2.8 (2.0-3.7cm) LVDs2.5 (2.5-4.0cm)LA (MM) (1.9-4.0cm)Aortic Cusp Exc1.8 (1.5-2.0cm) EF (%) 67.0 (55-70%)Rt. Atrium3.9 (1.9-4.0cm)Asc. Aorta cm IVSd1.4 (0.7-1.1cm)RV (D) (1.8-2.4cm) PWd1.8 (0.7-1.1cm) Mitral Valve MitralMitral Stenosis E wave0.86m/sMV Mean GR.mmHg A wave0.86m/sMV Peak GR.84mmHg E/A ratio1.02D MVAcm2 DECEL [id number] 1/2 [id number] IVRTmsDop MVA3.31cm2 Aortic Valve Aortic ValveAortic Stenosis V10.94m/Josef Mean GR.5mmHg V21.60m/Josef Peak GR.10mmHg LVOT Diameter1.9 (1.8-2.4cm)Doppler AVA1.66cm2 Pulmonic Valve V21.01m/s Tricuspid Valve TR Velocity1.96m/s [id number] Other Information Technically limited study due to body habitus, patient position and patient breathing. Conclusion Left ventricle: Concentric left ventricular hypertrophy was seen. LVEF was around 65%. There was no gross wall motion abnormality. Right ventricle was normal sized with normal systolic function. Both atria were normal sized. Aortic valve: Aortic valve was trileaflet. There was no aortic insufficiency/stenosis. There was a trace mitral/tricuspid regurgitation. Pulmonary valve did not reveal any insufficiency. Right ventricular systolic pressure was assessed around 24 mm Hg (normal). Was no pericardial effusi on.
--- NOTE | 2024-12-01 07:21 | DVHPN2 ---
Progress Note - Dictate Date Seen: December 01, 2024 Medical Necessity Reason Pt with a Central, PICC or Fol: No vital signs Vital Sign Date Time Temp Pulse Resp B/P (MAP) Pulse Ox O2 Delivery O2 Flow Rate FiO2 12/01/24 04:45 97.7 69 17 126/67 (86) 98 97.7 11/30/24 20:00 Room Air* 0 21 Total Intake and Output 11/30/24 11/30/24 12/01/24 15:00 23:00 07:00 Intake Total 800 ml 550 ml Balance 800 ml 550 ml medications Current Medications Medications Dose Ordered Sig/Kyra Route Start Time Stop Time Status Last Admin Dose Admin Sodium Chloride 1,000 ml @ 120 mls/hr Q8H20M IV 11/29/24 13:15 12/01/24 01:24 120 MLS/HR Acetaminophen/ Hydrocodone Bitart 1 tab Q4HP PRN PO 11/29/24 13:15 11/30/24 00:36 1 TAB Ondansetron HCl 4 mg Q4HP PRN IV 11/29/24 13:15 Docusate Sodium 100 mg BIDPRN PRN PO 11/29/24 13:15 11/30/24 00:35 100 MG Acetaminophen 650 mg Q6HP PRN PO 11/29/24 13:15 Morphine Sulfate 2 mg Q4HPRN PRN IV 11/29/24 13:15 Enoxaparin Sodium 40 mg DAILY SC 11/30/24 10:00 11/30/24 10:51 40 MG Pantoprazole Sodium 40 mg DAILY IV 11/30/24 10:00 11/30/24 10:51 40 MG Nitroglycerin 0.4 mg Q5MINP PRN SL 11/29/24 13:15 Morphine Sulfate 2 mg Q30M PRN IV 11/29/24 13:15 Diagnostic Test (Pha) 1 strip ACHS 11/29/24 17:00 12/01/24 06:18 1 STRIP Insulin Human Regular HS SC 11/29/24 22:00 11/30/24 22:06 3 UNITS Insulin Human Regular AC SC 11/29/24 17:00 12/01/24 06:20 2 UNITS Dextrose 50 ml UD PRN IV 11/29/24 13:15 Pregabalin 50 mg HS PO 11/30/24 22:00 11/30/24 22:12 50 MG Lorazepam 1 mg ONCE PRN IV 11/30/24 00:45 Meclizine HCl 25 mg Q6HPRN PRN PO 11/30/24 13:45 laboratory and microbiology Laboratory Tests 11/30/24 06:11 Test 11/30/24 06:11 Range/Units Serum Glucose 153 H 74-106 mg/dL Assessment/Plan 64-year-old female presented with dizziness. She woke up with vertigo and dizziness, and decided to call 911. She was unable to stand up and walk at that point. Did feel significant room spinning. Dizziness/vertigo improved after coming to emergency room. She mentioned that she has had similar episodes around a year prior. Did not lose consciousness. Denies chest pains. Denies shortness of breath. Denies palpitation. Cardiology was involved for cardiac aspects of care. Patient mentions occasional chest discomfort which the last episode was many weeks ago (happening at rest). Around a year ago she saw a solutions analyst (near [facility]) and was told the heart was good (unknown details available). Does have history of obesity, diabetes mellitus, hypertension and hyperlipidemia. Denies orthopnea/PND. Denies leg swellings. Feels limited in activity secondary to left hip arthritis/pain. Not in acute distress. Lying flat in bed. No JVD. Not using accessory muscle of breathing. No goiter. Mucosa is pink and wet. Lungs are clear to auscultation. Cardiac: Regular, no thrill/gallop. Abdomen is soft and obese. There is no gross mass/hepatomegaly. There is no peripheral edema. Dorsalis pedis is 2+ bilateral Past medical history includes diabetes mellitus, morbid obesity, hypertension, hyperlipidemia, DJD, autonomic dysfunction (detail?), old history of appendectomy and tubal ligation. Stopped smoking 19 years ago. Denies substance abuse. Denies alcohol abuse. Denies relevant family history. Creatinine: 1.08 - 0.99 Potassium: 4.0 - 3.8 Troponin (high sensitive): 3 CT of the head reported: IMPRESSION: 1. No acute intracranial process. Brain MRI revealed: IMPRESSION: 1. There is no acute intracranial process. EKG revealed sinus rhythm with no ST-T changes Tele reveals sinus rhythm Echocardiogram revealed: Left ventricle: Concentric left ventricular hypertrophy was seen. LVEF was around 65%. There was no gross wall motion abnormality. Right ventricle was normal sized with normal systolic function. Both atria were normal sized. Aortic valve: Aortic valve was trileaflet. There was no aortic insufficiency/stenosis. There was a trace mitral/tricuspid regurgitation. Pulmonary valve did not reveal any insufficiency. Right ventricular systolic pressure was assessed around 24 mm Hg (normal). Was no pericardial effusion. Patient is a 64-year-old female who presented with vertigo which lasted few hours. Did not lose consciousness. Syncope is not considered. Does have history of obesity/diabetes/hypertension/hyperlipidemia as risk for coronary artery disease. Presentation is not considered acute coronary syndrome. Does occasionally feel atypical chest discomfort. Mentions that she was checked with outside solutions analyst around a year ago. Cardiac etiology for presentation is less likely. Echo revealed good EF and no specific valvular disease. Vertigo Dizziness Meniere's? CVA? Diabetes mellitus Hyperlipidemia Hypertension Cardiac suggestion for management: Manage on telemetry Follow-up electrolytes and kidney function tests and correct abnormalities. Keep potassium above 4 and magnesium above 2 Request for chest x-ray Request for thyroid function test Request for carotid duplex Neurology follow-up Cardiac lyman, can be followed as outpatient. Further evaluation and management depends on the above and clinical course A total of 55 minutes was spent reviewing the patient record, examining the patient, making a diagnostic and therapeutic plan, discussing this plan with medical personnel, following up on diagnostic studies and following the patient for clinical stability excluding any and all procedures. At least 50% of this time was spent in direct, [id number] contact. Thank you for allowing me to participate in this patient's care. Further recommendations will depend on patient's clinical course. Please do not hesitate to contact me if you have any questions or concerns. This medical document was created using electronic medical record system with [employer] dictation system. Although this document has been carefully reviewed, there may still be some phonetic and typographical errors. These areas are purely typographical due to the imperfection of the software programs, and do not reflect any compromise in the patient's medical care Plan discussed with: Patient, Other ANTHONY DURAN MD December 01, 2024 07:21
[2024-12-01 08:00] VITALS: PULSE 71
--- NOTE | 2024-12-01 08:47 | DVH ---
INDICATION: Vertigo TECHNIQUE: Frontal view of the chest. COMPARISON: None FINDINGS: . The heart and mediastinal contours are grossly unremarkable. There is no evidence of pleural disea se. The lungs are clear. The bony structures of the chest are intact without fracture. IMPRESSION: 1. No evidence of acute disease.
[2024-12-01 09:00] VITALS: BP 134/63; PULSE 70; RESP 18; TEMP 97.9; O2SAT 97
--- NOTE | 2024-12-01 11:08 | DVH ---
Carotid Duplex Date: 12/01/2024 10:08 AM Clinical History: Rule out TIA Comparison: None Technique: Duplex Doppler evaluation of the extracranial carotid and vertebral arteries including col or Doppler and spectral/pulsed waveform analysis was performed. Findings: a Velocities and ratios within normal limits. IMPRESSION: No hemodynamically significant stenosis noted in the right carotid system. No hemodynamically significant stenosis noted in the left carotid system. Reference: Radiology 2003; [id number]
--- NOTE | 2024-12-01 12:54 | DVHPN2 ---
Progress Note - Dictate Medical Necessity Reason Pt with a Central, PICC or Fol: No vital signs Vital Sign Date Time Temp Pulse Resp B/P (MAP) Pulse Ox O2 Delivery O2 Flow Rate FiO2 12/01/24 09:00 97.9 70 18 134/63 (86) 97 97.9 11/30/24 20:00 Room Air* 0 21 Total Intake and Output 11/30/24 11/30/24 12/01/24 15:00 23:00 07:00 Intake Total 800 ml 550 ml Balance 800 ml 550 ml medications Current Medications Medications Dose Ordered Sig/Kyra Route Start Time Stop Time Status Last Admin Dose Admin Sodium Chloride 1,000 ml @ 120 mls/hr Q8H20M IV 11/29/24 13:15 12/01/24 01:24 120 MLS/HR Acetaminophen/ Hydrocodone Bitart 1 tab Q4HP PRN PO 11/29/24 13:15 11/30/24 00:36 1 TAB Ondansetron HCl 4 mg Q4HP PRN IV 11/29/24 13:15 Docusate Sodium 100 mg BIDPRN PRN PO 11/29/24 13:15 11/30/24 00:35 100 MG Acetaminophen 650 mg Q6HP PRN PO 11/29/24 13:15 Morphine Sulfate 2 mg Q4HPRN PRN IV 11/29/24 13:15 Enoxaparin Sodium 40 mg DAILY SC 11/30/24 10:00 12/01/24 09:17 40 MG Pantoprazole Sodium 40 mg DAILY IV 11/30/24 10:00 12/01/24 09:16 40 MG Nitroglycerin 0.4 mg Q5MINP PRN SL 11/29/24 13:15 Morphine Sulfate 2 mg Q30M PRN IV 11/29/24 13:15 Diagnostic Test (Pha) 1 strip ACHS 11/29/24 17:00 12/01/24 10:59 1 STRIP Insulin Human Regular HS SC 11/29/24 22:00 11/30/24 22:06 3 UNITS Insulin Human Regular AC SC 11/29/24 17:00 12/01/24 11:12 2 UNITS Dextrose 50 ml UD PRN IV 11/29/24 13:15 Pregabalin 50 mg HS PO 11/30/24 22:00 11/30/24 22:12 50 MG Lorazepam 1 mg ONCE PRN IV 11/30/24 00:45 Meclizine HCl 25 mg Q6HPRN PRN PO 11/30/24 13:45 objective General Appearance: alert, no distress HEENT: EOMI, PERRLA, normal external inspect of ears, no icterus, no nasal drainage Neck: no carotid bruit, no jugular venous distention (JVD), no lymphadenopathy Chest: normal thorax Respiratory: clear to auscultation, normal air movement Cardiovascular: regular rate and rhythm, no diastolic murmur, no jugular venous distention (JVD), no rub, no systolic murmur Abdominal: soft, no hepatomegaly, no mass, no splenomegaly, no tenderness Genitourinary: grossly normal external Musculoskeletal: no joint tenderness, no swelling Extremities: normal pulses, no calf tenderness, no clubbing, no cyanosis, no edema Skin: no bruising, no jaundice, no rash Neurological: alert, No focal deficit laboratory and microbiology Laboratory Tests 11/30/24 06:11 Test 11/30/24 06:11 Range/Units Serum Glucose 153 H 74-106 mg/dL Problem List 1. Autonomic dysfunction Monitorm neurology consult, MRI brain, IV fluids 2. HLD Monitor, medications, lipid panel 3. Benign essential HTN Monitor, cardiology consult, antihypertensives 4. Morbid obesity Monitor, cardiac diet 5. DM II with hyperglycemia Monitor, insulin SS, obtain Hgb A1c Assessment/Plan Subjective: Patient is awake and alert. Objective: Patient was admitted for dizziness. Patient was seen by cardiology as well as neurology. Patient was seen and evaluated by ER and diagnosed with possible autonomic dysfunction. Cannot rule out Menieres disease as well. Patient has underlying history of hypertension, hyperlipidemia, and diabetes. Plan: Continue current treatment. Start Meclizine as needed for dizziness. MRI of the brain to rule out CVA. Neurology recommendations appreciated. JOHN SHINE NP December 01, 2024 12:53
[2024-12-01 13:00] VITALS: BP 138/84; PULSE 73; RESP 16; TEMP 97.8; O2SAT 98
[2024-12-01] MEDS ORDERED: PREG50CA PO ×2 (13:07→13:11)
--- NOTE | 2024-12-01 13:14 | DVHDS2 ---
Discharge Summary Date of Admission Nov 29, 2024 at 13:05 Date of Discharge: December 01, 2024 Labs/Diagnostic Data: Laboratory Results Test 12/01/24 10:48 12/01/24 08:53 11/30/24 06:11 11/29/24 08:45 POC Glucose 151 mg/dl (70-106) Thyroid Stimulating Hormone (TSH) 2.39 uIU/mL (0.55-4.78) White Blood Count 4.2 10^3/uL (4.4-10.8) Red Blood Count 4.15 10^6/uL (4.0-5.20) Hemoglobin 12.7 g/dL (12.2-16.2) Hematocrit 36.9 % (36.0-46.0) Mean Corpuscular Volume 88.9 fL (80.0-100.0) Mean Corpuscular Hemoglobin 30.7 pg (28.0-32.0) Mean Corpuscular Hemoglobin Concent 34.5 g/dL (32.0-36.0) Red Cell Distribution Width 14.0 % (11.8-14.3) Platelet Count 204 10^3/uL (140-450) Mean Platelet Volume 8.6 fL (6.9-10.8) Neutrophils (%) (Auto) 40.3 % (37.0-80.0) Lymphocytes (%) (Auto) 47.8 % (10.0-50.0) Monocytes (%) (Auto) 9.7 % (0.0-12.0) Eosinophils (%) (Auto) 1.9 % (0.0-7.0) Basophils (%) (Auto) 0.3 % (0.0-2.0) Neutrophils # (Auto) 1.7 10 ^3/uL (1.6-8.6) Lymphocytes # (Auto) 2.0 10 ^3/uL (0.4-5.4) Monocytes # (Auto) 0.4 10 ^3/uL (0-1.3) Eosinophils # (Auto) 0.1 10 ^3/uL (0-0.8) Basophils # (Auto) 0 10 ^3/uL (0-0.2) Nucleated Red Blood Cells 0.1 % Sodium Level 141 mmol/L (136-145) Potassium Level 3.8 mmol/L (3.5-5.1) Chloride Level 109 mmol/L (98-107) Carbon Dioxide Level 23 mmol/L (20-31) Anion Gap 9 (5-15) Blood Urea Nitrogen 15 mg/dL (9-23) Creatinine 0.99 mg/dL (0.550-1.02) Glomerular Filtration Rate Calc 64 mL/min (>90) BUN/Creatinine Ratio 15.2 (10.0-20.0) Serum Glucose 153 mg/dL (74-106) Hemoglobin A1c 8.1 % A1C (<5.7) Calcium Level 9.5 mg/dL (8.7-10.4) Iron Level 57 ug/dL (50-170) Total Iron Binding Capacity 294 ug/dL (250-425) Percent Iron Saturation 19.4 % (15-50) Ferritin 64.9 ng/mL (10-291) Total Bilirubin 0.6 mg/dL (0.2-1.0) Aspartate Amino Transferase (AST) 13 U/L (13-40) Alanine Aminotransferase (ALT) 12 U/L (7-40) Alkaline Phosphatase 88 U/L (46-116) Total Protein 6.6 g/dL (5.7-8.2) Albumin 4.0 g/dL (3.2-4.8) Triglycerides Level 98 mg/dL (< 150) Cholesterol Level 144 mg/dL (< 200) LDL Cholesterol 91 mg/dL (< 100) HDL Cholesterol 37 mg/dL (40-59) Vitamin B12 Level 271 pg/mL (211-911) Folic Acid 9.32 ng/mL (>5.38) Free Thyroxine (T4) Calculated 0.91 ng/dL (0.89-1.76) Troponin I High Sensitivity 3 ng/L (</=34) Hepatitis B Surface Antigen Negative (Negative) Hepatitis C Antibody Negative (Negative) Other Laboratory Tests 11/30/24 06:11 Brief Hx & Hospital Course: 64 y/o female patient with h/o HTN, HLD, DM presents with c/o dizziness since waking up this morning. She denies head injury, headache, vision changes. While in the emergency department the patient was evaluated by the provider, As per provider: Labs, vital signs, and imagining monitored. Patient was admitted on 11/29/2024 for autonomic dysfunction. Patient had complaints of dizziness. Patient was seen by cardiology and neurology. MRI was done. Acute CVA was ruled out. Patient had an echocardiogram, EF was estimated at 65%. No acute process was found. Troponin levels were negative. Acute coronary syndrome was also ruled out. Patient has a history of diabetes. Patient stated that Lyrica helped with her dizziness. neurology started Lyrica at night. Patient states her dizziness went away. Patient was discharged home with refill of her Lyrica. She is to follow-up with her PCP in 1 week. The patient received proper medical treatment and medications. Vital signs, Imaging and Laboratory Work was monitored daily. All consults recommendations were followed as provided. There were no complaints or new complaints upon discharge, all questions and concerns were answered. Patient was advised to return to the ER or call 911 if any headaches, dizziness, shortness of breath, chest pain, bleeding, fevers, or worsening of medical condition. Patient/Family was counseled about treatment plan, medications, possible side effects, patient verbalized understanding. All questions were answered to the best of my ability. The patient symptoms improved and they are okay to be DC. Condition at Discharge: Good Final Diagnosis/Problems List Dizziness MRI- cva ruled out Echo - 65% acute cardiac process ruled out Autonomic dysfunction HLD Benign essential HTN Morbid obesity DM II with hyperglycemia Discharge Disposition: Home Discharge Instruct/Medications Diet: Cardiac 2g Na,low cholest Activity: No Restrictions, As Tolerated Follow Up/Referral: pcp 1 week Discharge Statement: "Patient was advised to return to the ER or call 911 if any headaches, dizziness, shortness of breath, chest pain, abdominal pain, bleeding, fevers, or worsening of medical condition. Patient was counseled about treatment plan, medications, possible side effects, patientverbalized understanding. All questions were answered to the best of my ability. This discharge took greater then 30 minutes in planning, reviewing documentation, counseling the patient, and discussing with other team members." ASSESSMENT ASSESSMENT Assessment Dizziness MRI- cva ruked out Echo - 65% acute cardiac process ruled out JOHN SHINE NP December 01, 2024 13:14
[2024-12-01 15:06] VITALS: BP 138/84; PULSE 73; RESP 16; TEMP 97.8; O2SAT 98
== END 2024-12-01 16:00 | disposition home or self-care (01) | DRG 74 ==
LOC: EDBD 08:23 → ER 08:23 → OVERFLOW 13:05 → TELE-WESTW 18:09
PROVIDERS: ADMIT Nurse Practitioner; ATTEND Nurse Practitioner
DX: G90.9 Disorder of the autonomic nervous system, unspecified (principal); Z68.41 Body mass index [BMI] 40.0-44.9, adult; G25.81 Restless legs syndrome; G47.00 Insomnia, unspecified; E66.01 Morbid (severe) obesity due to excess calories; E11.65 Type 2 diabetes mellitus with hyperglycemia; E61.1 Iron deficiency; E11.42 Type 2 diabetes mellitus with diabetic polyneuropathy; E78.5 Hyperlipidemia, unspecified; F17.200 Nicotine dependence, unspecified, uncomplicated; M16.12 Unilateral primary osteoarthritis, left hip; I10 Essential (primary) hypertension; H81.03 Meniere's disease, bilateral; Z79.82 Long term (current) use of aspirin; Z79.4 Long term (current) use of insulin; Z79.899 Other long term (current) drug therapy; Z79.84 Long term (current) use of oral hypoglycemic drugs; Z82.49 Family history of ischemic heart disease and other diseases of the circulatory system; Z90.49 Acquired absence of other specified parts of digestive tract
CPT/HCPCS: 36415; 70450; 70551; 71045; 80048; 80053; 80061; 82607; 82728; 82746; 82962; 83036; 83540; 83550; 84439; 84443; 84484; 85025; 86803; 87340; 93005; 93306; 93886; 99291; G0378; J1815; J2470